=== PATIENT | female | born 1990 | race Caucasian/White ===

== ENCOUNTER 2016-09-23 16:43 | Emergency (ER) | payer BC, OTHER ==
[~2016-09-23] VITALS: Ht 162.6 cm; Wt 52.6 kg
[~2016-09-23 16:43] MED LIST: ALBUAER19 INH; BUPR8MIS PO; OMEG10007 PO; PRENTAB26 PO
[2016-09-23 16:49] VITALS: Ht 162.6 cm; Wt 52.6 kg
[2016-09-23] MEDS ORDERED: EpINEphrine INJ 1MG/ML AMP 1 MG/ML AMP ONE (16:55)
[2016-09-23] MEDS ORDERED: METHYLPREDNISOLONE 125 MG VIAL IV STA (16:58)
[2016-09-23] MEDS ORDERED: METHYLPREDNISOLONE 125 MG VIAL ONE (16:59)
[2016-09-23] MEDS ORDERED: ALBUT/IPRATROP 3MG/0.5MG NEB 3 ML VIAL INH STA ×2 (16:59)
[2016-09-23] MEDS ORDERED: FAMOTIDINE 20MG/102 ML D5W ONE (16:59)
[2016-09-23] MEDS ORDERED: FAMOTIDINE 20MG/102 ML D5W IV STA ×2 (16:59)
[2016-09-23 17:08] LABS: COMPLETE YES; EOS % 3.3 %; HEMATOCRIT 39.7 % (37-47); LYMPH % 34.7 %; LYMPH ABS # 2.01 K/uL (1.2-3.4); MEAN CELL VOLUME 88.4 fL (80-100); MEAN CORPUSCULAR HEMOGLOBIN 31.2 pg (25-34); MEAN CORPUSCULAR HGB CONC 35.3 g/dl (32-36); MEAN PLATELET VOLUME 9.3 fL (7.4-10.4); MONO % 4.1 %; NEUT % 57.9 %; PLATELET COUNT 243 K/uL (130-400); RED BLOOD COUNT 4.49 M/uL (4.2-5.4); WHITE BLOOD COUNT 5.79 K/uL (4.8-10.8)
[2016-09-23 17:25] LABS: BUN/CREATININE RATIO 13.8 (10-20); CALCIUM 8.9 mg/dl (8.5-10.1); CREATININE 0.67 mg/dl (0.60-1.20); POTASSIUM 4.1 mmol/L (3.5-5.1)
[2016-09-23] MEDS ORDERED: PRED20TA PO (19:06)
[2016-09-23] MEDS ORDERED: EPP3/2 IM (19:06)
[2016-09-23 19:30] VITALS: BP 106/61; PULSE 89; TEMP 36.7; O2SAT 96
--- NOTE | 2016-09-23 23:32 | EMERGENCY ROOM VISIT NOTE ---
History Report prepared by Flora: Leigha George Under the Supervision of: Dr. Chico Hummel M.D. 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 The patient ate pistachios about 1 hour before her symptoms started. She states that she eats these nuts all of the time and has never had any issues with them before. She also ate a cranberry nut bar 1 hour before her symptoms started and states that it is only about the third time she has eaten this. At 3pm she went outside on break at work and was walking around her building. She states that there are trees around the building but no gardens or meyer. She does not think that she was stung or bitten by anything during her walk. When she went back inside, she couldn't feel the left side of her nose and her left ear felt full and tingly. The patient then became red and itchy all over. Her nose and lips swelled. She denies any tongue swelling. The patient has chest tightness and her voice feels forced. She rates her current pain as a 7/10 in severity. She had 1 Benadryl and went to Urgent Care where she was given a second dose of Benadryl and sent to the ED for further evaluation. The patient denies any known allergies. She denies any recent fevers or illness. She has been experiencing some abdominal pain for the past 6 weeks and has a follow-up appointment tomorrow with her PCP. She gets pain every day. It is worse with eating any type of food. She denies any fever, vomiting, black or tarry stools or urinary symptoms. No family history of inflammatory bowel disease. 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 She denies any tongue swelling. Review of Systems See HPI for pertinent positives & negatives. A total of 10 systems reviewed and were otherwise negative. Past Medical & Surgical Medical Problems: (1) Asthma (2) Asthma exacerbation (3) Pneumonia Family History No pertinent history stated. Social History Smoking Status: Current Every Day Smoker Alcohol Use: none Marital Status: single Occupation Status: employed Current/Historical Medications Scheduled Buprenorphine Hcl-Naloxone Hcl (Suboxone 8-2 Mg), 8 MG PO DAILY Epinephrine (Epipen), 0.3 MG IM UD Prednisone (Prednisone), 3 TAB PO DAILY Scheduled PRN Albuterol Inhaler (Ventolin Inhaler), 2 PUFFS INH Q4-6HRS PRN for Asthma Allergies Coded Allergies: No Known Allergies (Unverified , 09/23/16) Physical Exam Vital Signs Date Time Temp Pulse Resp B/P (MAP) Pulse Ox O2 Delivery O2 Flow Rate FiO2 09/23/16 19:30 36.7 89 18 106/61 96 09/23/16 17:56 89 18 106/61 96 Room Air 09/23/16 17:16 100 Room Air 09/23/16 16:59 99 09/23/16 16:49 36.7 107 18 127/75 98 Room Air Physical Exam Constitutional: Vital signs reviewed. Eyes: Pupils are equal round reactive to light. Conjunctiva are noninjected. ENT: Pharynx is clear without erythema or exudate. Mucous membranes are moist. No swelling to the tongue or uvula. Swelling to the nose and lips. Neck supple without meningeal signs. Respiratory: Clear to auscultation bilaterally. Breath sounds are equal bilaterally. No wheezing or stridor. Cardiovascular: Tachycardic. Heart rate 101. GI: Soft, nondistended and nontender. Bowel sounds are present. Musculoskeletal: No peripheral edema. No lower extremity tenderness. Integumentary: Coalesced urticaria to the proximal lower extremities, trunk and face and arms. Neurological: The patient is awake and alert. No focal deficits. Psychiatric: Anxious. Medical Decision & Procedures Laboratory Results 09/23/16 16:55 Red Blood Count 4.49, Mean Corpuscular Volume 88.4, Mean Corpuscular Hemoglobin 31.2, Mean Corpuscular Hemoglobin Concent 35.3, Mean Platelet Volume 9.3, Neutrophils (%) (Auto) 57.9, Lymphocytes (%) (Auto) 34.7, Monocytes (%) (Auto) 4.1, Eosinophils (%) (Auto) 3.3, Basophils (%) (Auto) 0.0, Neutrophils # (Auto) 3.35, Lymphocytes # (Auto) 2.01, Monocytes # (Auto) 0.24, Eosinophils # (Auto) 0.19, Basophils # (Auto) 0.00 09/23/16 16:55 Test 09/23/16 16:55 White Blood Count 5.79 K/uL (4.8-10.8) Red Blood Count 4.49 M/uL (4.2-5.4) Hemoglobin 14.0 g/dL (12.0-16.0) Hematocrit 39.7 % (37-47) Mean Corpuscular Volume 88.4 fL (80-100) Mean Corpuscular Hemoglobin 31.2 pg (25-34) Mean Corpuscular Hemoglobin Concent 35.3 g/dl (32-36) Platelet Count 243 K/uL (130-400) Mean Platelet Volume 9.3 fL (7.4-10.4) Neutrophils (%) (Auto) 57.9 % Lymphocytes (%) (Auto) 34.7 % Monocytes (%) (Auto) 4.1 % Eosinophils (%) (Auto) 3.3 % Basophils (%) (Auto) 0.0 % Neutrophils # (Auto) 3.35 K/uL (1.4-6.5) Lymphocytes # (Auto) 2.01 K/uL (1.2-3.4) Monocytes # (Auto) 0.24 K/uL (0.11-0.59) Eosinophils # (Auto) 0.19 K/uL (0-0.5) Basophils # (Auto) 0.00 K/uL (0-0.2) RDW Standard Deviation 37.1 fL (36.4-46.3) RDW Coefficient of Variation 11.6 % (11.5-14.5) Immature Granulocyte % (Auto) 0.0 % Immature Granulocyte # (Auto) 0.00 K/uL (0.00-0.02) Anion Gap 8.0 mmol/L (3-11) Est Creatinine Clear Calc Drug Dose 106.6 ml/min Estimated GFR () 141.6 Estimated GFR (Non- 122.2 BUN/Creatinine Ratio 13.8 (10-20) Calcium Level 8.9 mg/dl (8.5-10.1) Total Bilirubin 0.4 mg/dl (0.2-1) Direct Bilirubin 0.1 mg/dl (0-0.2) Aspartate Amino Transf (AST/SGOT) 13 U/L (15-37) Alanine Aminotransferase (ALT/SGPT) 22 U/L (12-78) Alkaline Phosphatase 44 U/L (45-117) Total Protein 6.9 gm/dl (6.4-8.2) Albumin 3.9 gm/dl (3.4-5.0) Lipase 193 U/L (73-393) Laboratory results as reviewed by me. Medications Administered Medications (Trade) Dose Ordered Sig/Chelsea Route Start Time Stop Time Status Last Admin Dose Admin Methylprednisolone Sodium Succinate (Solu-Medrol IV) 125 mg STK-MED ONCE .ROUTE 09/23/16 16:59 09/23/16 17:00 DC 09/23/16 17:03 125 MG Famotidine (Pepcid 20mg/100 ml) 20 mg STK-MED ONCE .ROUTE 09/23/16 16:59 09/23/16 17:00 DC 09/23/16 17:03 20 MG Albuterol/ Ipratropium (Duoneb) 3 ml NOW STAT INH 09/23/16 16:59 09/23/16 17:01 DC 09/23/16 16:59 3 ML ECG Indication: chest pain Rate (beats per minute): 84 Rhythm: normal sinus Findings: no acute ischemic change, no ectopy ED Course 4: The patient was evaluated in room A1. A complete history and physical exam was performed. 1659: DuoNeb 3 ml INH, Famotidine 20 mg, Solu-Medrol 125 mg IV 1723: I reassessed the patient at this time. She is feeing better. Her chest pain has resolved, although she has had some worsening of her usual abdominal pain, which is located in her sides. No tenderness to palpation. 1755: The patient is feeling much better. Rash is almost completely resolved. Still residual swelling to the lips and nose. Chest pain is resolved. No shortness of breath. 1900: I reassessed the patient at this time. She is feeling better and resting comfortably. She has a bit of a sore throat. Her facial swelling has resolved. She does not want to wait any longer for observation. I discussed the results and treatment plan with the patient. I answered all pertaining questions that she had. She expressed understanding and verbalized agreement. The patient will be discharged home. She is going to follow-up with an long filler cigar roller machine. I instructed her on the use of an Epi-Pen. Medical Decision This is a 25-year-old female presents with abdominal pain and rash. Differential diagnosis includes acute allergic reaction, angioedema, irritable bowel syndrome, inflammatory bowel disease, cholelithiasis, pancreatitis, peptic ulcer disease. I did perform a limited focused review of portions of the patient's old chart on the electronic medical record. The patient has had no recent pertinent visits to this hospital. Medication Reconciliation: I attest that I have personally reviewed the patient' s current medication list. Blood Pressure Screening: Patient was found to have a slightly elevated blood pressure due to circumstances. I do not believe that the patient requires hypertension monitoring. I did evaluate the patient as noted above. The patient is presenting with what appears to be an acute allergic reaction. The allergen is uncertain at this time but she did have a cranberry not bar as well as pistachios. I therefore recommended she stay away from nuts until she sees an long filler cigar roller machine. She also has had abdominal pain for weeks. She is scheduled to see her doctor for further evaluation of this. She does not have any abdominal tenderness to suggest an acute surgical process. She thinks she may have a gallbladder problem but does not have any right upper quadrant or epigastric tenderness. IV access was established. The patient was placed on a continuous telemetry monitor. I did order and personally review the patient's 12-lead EKG as described above. I did treat the patient with a DuoNeb as well as Solu-Medrol IV and Pepcid IV. She did have Benadryl prior to arrival. I did order and review the patient's blood work as noted in the electronic medical record. Her labs are unremarkable. I did reassess her multiple times. Her rash did improve significantly. She no longer has any chest pain or difficulty breathing. The swelling to her face has gone down. She did wish to be discharged home. She was advised to follow up closely with an long filler cigar roller machine for further testing. She was given a prescription for prednisone and an EpiPen. She does have an appointment to follow up with her doctor tomorrow which she will keep. She was discharged in good condition. Impression Primary Impression: Allergic reaction Additional Impression: Abdominal pain Scribe Attestation The scribe's documentation has been prepared under my direct and personally reviewed by me in its entirety. I confirm that the note above accurately reflects all work, treatment, procedures, and medical decision making performed by me. Departure Information Dispostion Home / Self-Care Prescriptions Epinephrine (EPIPEN) 0.3 Mg/0.3 Ml Inj 0.3 MG IM UD, #1 BOX Prov: Chico Hummel M.D. 09/23/16 Prednisone (Prednisone) 20 Mg Tab 3 TAB PO DAILY, #12 TAB FOR 4 DAYS Prov: Chico Hummel M.D. 09/23/16 Referrals No Doctor, Assigned (PCP) Forms HOME CARE DOCUMENTATION FORM, IMPORTANT VISIT INFORMATION Patient Instructions Abdominal Pain, ED Allergic Reaction General Other, My [facility] Additional Instructions You have been examined and treated today on an emergency basis only. This is not a substitute for, or an effort to provide, complete comprehensive medical care. It is impossible to recognize and treat all injuries or illnesses in a single emergency department visit. It is therefore important that you follow up closely with your physician and an long filler cigar roller machine. Call as soon as possible for an appointment. Return for worsening symptoms or if you develop fever, vomiting, difficulty breathing, feeling like you are going to pass out, black or bloody stools or any other concerning symptoms. Problem Qualifiers Primary Impression: Allergic reaction Encounter type: initial encounter Qualified Codes: T78.40XA - Allergy, unspecified, initial encounter Additional Impression: Abdominal pain Abdominal location: upper abdomen, unspecified Qualified Codes: R10.10 - Upper abdominal pain, unspecified
== END 2016-09-23 19:30 | disposition home or self-care (01) ==
LOC: C.EDB 16:44 → C.EDA 19:30
DX: T78.40XA Allergy, unspecified, initial encounter (principal); R10.10 Upper abdominal pain, unspecified; R20.2 Paresthesia of skin; R07.9 Chest pain, unspecified; R51 Headache; J45.909 Unspecified asthma, uncomplicated; Z79.899 Other long term (current) drug therapy; Z87.09 Personal history of other diseases of the respiratory system; F17.200 Nicotine dependence, unspecified, uncomplicated; X58.XXXA Exposure to other specified factors, initial encounter